=== PATIENT | male | born 1940 | race Caucasian/White ===

== ENCOUNTER 2024-07-02 20:56 | Outpatient (CLI) | payer MEDICARE, BC, SELFPAY | END 2024-07-02 20:57 | disposition home or self-care (01) | LOC: AMB 07-13 00:16 | PROVIDERS: PCP Family Medicine; Visit Provider Student in an Organized Health Care Education/Training Program | DX: R50.9 Fever, unspecified (principal) | CPT/HCPCS: A0425; A0427 ==

== ENCOUNTER 2024-07-02 21:19 | Emergency (ER) | payer MEDICARE, BC, SELFPAY ==
[2024-07-02 21:27] VITALS: BP 129/64; PULSE 84; RESP 22; TEMP 36.6; O2SAT 93
[2024-07-02 22:53] LABS: Appearance Urine Clear (Clear); Bilirubin Urine Negative (Negative); Blood Urine Negative (Negative); Color Urine Yellow (Yellow); Glucose Urine Negative (Negative); Ketones Urine Negative (Negative); Leukocyte Esterase Urine Negative (Negative); Nitrite Urine Negative (Negative); Protein Urine Trace (Negative); Urobilinogen Urine >=8.0 (0.2-1.0); pH Urine 8.5 (5.0-8.5)
[2024-07-02 23:19] VITALS: BP 118/66; PULSE 86; RESP 16; O2SAT 94
[2024-07-02 23:26] LABS: RBC Urine 0-2 (0-2); Squamous Epithelial Cell Urine Few (None-Few); WBC Urine 0-2 (0-5)
[2024-07-02 23:31] LABS: PCR FLU A Negative PCR FLU A (Negative); PCR FLU B Negative PCR FLU B (Negative); SARS PCR* Negative SARS-CoV-2 (Negative)
[2024-07-02 23:32] VITALS: BP 119/64; PULSE 82; O2SAT 94
--- NOTE | 2024-07-02 23:32 | ED.GENADULT ---
HPI - General Adult General Chief complaint: Altered Mental Status Stated complaint: fever Time Seen by Provider: 07/02/24 21:26 History of Present Illness HPI narrative: Pt arrives via EMS for confusion and fever since 1700. Tmax at home 102. Pt woke up and had a normal day. Was out w/ friends. Was supposed to go out for dinner w/ spouse and she found him to be confused. On arrival, pt is slow to answer questions. Denies pain. Is afebrile. States he might have had some alcohol today. 83-year-old man presenting to the emergency department. [place] struggles with memory. Spouse answers most questions offers most information. Had been spending some hours working to repair a door knob with a friend. Was apparently subsequently in bed and spouse touched his leg and noted that it was very hot. Measure temperature up to 102 at home. Went to the bathroom but was too weak to get up from the toilet so spouse called for ambulance. No pain complaints. No rashes. Related Data Home Medications ?Medication ?Instructions ?Recorded ?Confirmed donepezil 10 mg tablet 10 mg PO DAILY 07/02/24 07/02/24 rosuvastatin 20 mg tablet 20 mg PO DAILY 07/02/24 07/02/24 verapamil 240 mg tablet,extended 240 mg PO DAILY 07/02/24 07/02/24 release Allergies Allergy/AdvReac Type Severity Reaction Status Date / Time No Known Drug Allergies Allergy Verified 07/02/24 21:34 Review of Systems Status of ROS: Reports: 6 or more systems reviewed and unremarkable except as noted in History and below [facility] Social History Smoking Status: Unknown if ever smoked Exam Narrative: Exam Narrative: Pleasant. Breathing easily. Does not say a whole lot. Reacts responds though fully alert. Defers to spouse in conversation. Face is flushed. Oropharynx unremarkable. Neck is supple without lymphadenopathy. Lungs are clear. Heart in regular rate and rhythm with trace systolic murmur. Abdomen is overweight soft and nontender. No peritoneal signs certainly. No masses appreciated. Normal bowel sounds. Moving all extremities without difficulty. Well-perfused peripherally. Trace pretibial pitting edema. Const: Vital Signs, click to edit/add: Vital Signs - 24 hr 07/02/24 21:27 07/02/24 23:19 07/02/24 23:32 Temperature 98 F Pulse Rate 86 82 Pulse Rate [Pulse Oximeter] 84 Respiratory Rate 22 16 Blood Pressure 118/66 119/64 Blood Pressure [Ri ght Upper Arm] 129/64 Pulse Oximetry 93 94 94 Oxygen Delivery Me thod Room Air Room Air 07/02/24 23:46 07/03/24 00:02 07/03/24 00:17 Temperature Pulse Rate 82 85 77 Pulse Rate [Pulse Oximeter] Respiratory Rate 16 Blood Pressure 126/62 124/64 126/74 Blood Pressure [Ri ght Upper Arm] Pulse Oximetry 94 93 94 Oxygen Delivery Me thod Room Air 07/03/24 00:32 07/03/24 00:32 07/03/24 00:43 Temperature Pulse Rate 76 76 77 Pulse Rate [Pulse Oximeter] Respiratory Rate Blood Pressure 116/72 116/72 138/61 Blood Pressure [Ri ght Upper Arm] Pulse Oximetry 94 94 95 Oxygen Delivery Me thod 07/03/24 01:01 07/03/24 01:17 07/03/24 01:18 Temperature Pulse Rate 70 Pulse Rate [Pulse Oximeter] Respiratory Rate Blood Pressure 116/53 L 106/58 L Blood Pressure [Ri ght Upper Arm] Pulse Oximetry 95 Oxygen Delivery Me thod 07/03/24 01:30 07/03/24 01:45 07/03/24 02:00 Temperature Pulse Rate 70 67 66 Pulse Rate [Pulse Oximeter] Respiratory Rate Blood Pressure Blood Pressure [Ri ght Upper Arm] Pulse Oximetry 94 94 95 Oxygen Delivery Me thod 07/03/24 02:15 07/03/24 02:30 07/03/24 02:37 Temperature 98.8 F Pulse Rate 65 62 Pulse Rate [Pulse Oximeter] Respiratory Rate Blood Pressure Blood Pressure [Ri ght Upper Arm] Pulse Oximetry 94 96 Oxygen Delivery Me thod 07/03/24 02:37 Temperature 98.8 F Pulse Rate Pulse Rate [Pulse Oximeter] Respiratory Rate Blood Pressure Blood Pressure [Ri ght Upper Arm] Pulse Oximetry Oxygen Delivery Me thod Documenting provider has reviewed patient's vital signs: yes Course Vital Signs Vital signs: Initial Vital Signs Temperature 98 F 07/02/24 21:27 Temperature Source Oral 07/02/24 21:27 Pulse Rate 84 07/02/24 21:27 Pulse Rhythm Regular 07/02/24 21:27 Respiratory Rate 22 07/02/24 21:27 Blood Pressure 129/64 07/02/24 21:27 Blood Pressure Mean 85 07/02/24 21:27 Blood Pressure Position Semi-Fowlers 07/02/24 21:27 Pulse Oximetry 93 07/02/24 21:27 Oxygen Delivery Method Room Air 07/02/24 21:27 Vital Signs Temperature 98 F 07/02/24 21:27 Pulse Rate 84 07/02/24 21:27 Respiratory Rate 22 07/02/24 21:27 Blood Pressure 129/64 07/02/24 21:27 Pulse Oximetry 93 07/02/24 21:27 Oxygen Delivery Method Room Air 07/02/24 21:27 Temperature 98.8 F 07/03/24 02:37 Pulse Rate 62 07/03/24 02:30 Respiratory Rate 16 07/03/24 00:02 Blood Pressure 106/58 L 07/03/24 01:17 Pulse Oximetry 96 07/03/24 02:30 Oxygen Delivery Method Room Air 07/03/24 00:02 Medications Administered Medications: Discontinued Medications Generic Name Dose Route Start Last Admin Trade Name Myranda PRN Reason Stop Dose Admin Acetaminophen 1,000 mg 07/02/24 23:43 07/03/24 00:10 Acetaminophen 500 Mg Tablet PO 07/02/24 23:44 1,000 mg ONCE ONE Administration Sodium Chloride 1,000 mls @ 1,000 mls/hr 07/02/24 23:43 07/03/24 01:20 0.9 % Sodium Chloride 1000 Ml IV 07/03/24 00:42 Infused .Q1H ONE Infusion Ceftriaxone Sodium 1 gm/ 100 mls @ 200 mls/hr 07/03/24 01:53 07/03/24 02:37 Sodium Chloride IVPB 07/03/24 01:54 Infused ONCE ONE Infusion Medical Decision Making MDM Narrative Medical decision making narrative: Reported fever. Not demonstrated here. I would expect that did indeed have a fever. Unclear etiology at this point. Sounds like was exerting himself little bit more physically today. Has been warm out. Air conditioning available but not turned on at the house. Would search for source of potential infection. Vitals reassuring at this point. Though O2 sats a little bit low initially at 93%. I did review chest x-ray one-view portable. Radiology over-read as below. Technique: Chest 1 view. Comparison: Chest radiographs dated 07/22/2015. Findings/Impression: Cardiovascular and mediastinum: Prominent cardiomediastinal silhouette. Lungs and pleural space: Very low lung volumes with diffuse interstitial prominence, which is likely at least partially artifactual, though pulmonary edema or pneumonia could have a similar appearance. No definite pleural effusion. No pneumothorax. Bones and soft tissues: No acute findings. Labs are reassuring. On reassessment is markedly more alert/energetic following IV hydration and rest. Considering age and findings in chest x-ray, perhaps it is prudent to treat for evolving pneumonia. Rocephin given. Ambulating smoothly and vigorously with a walker about the department prior to departure and would like to return home. Medical Records Medical records reviewed: Yes I reviewed the patient's medical records Lab Data Lab results reviewed: Yes I reviewed the patient's lab results Labs: Lab Results 07/02/24 07/03/24 Range/Units 22:40 00:05 WBC 7.83 (4.50-11.00) K/uL RBC 4.20 L (4.30-5.90) m/uL Hgb 13.2 L (13.5-17.5) gm/dL Hct 38.3 (37.0-53.0) % MCV 91 (80-100) fL MCH 31 (26-34) pg MCHC 35 (32-36) gm/dL RDW Coeff of Rajat 12.3 (11.5-15.5) % Plt Count 134 L (140-440) K/uL Neut % (Auto) 79.6 H (42.0-72.0) % Lymph % (Auto) 10.7 L (20-44) % [place] % (Auto) 9.3 (0.0-11.0) % Eos % (Auto) 0.0 (0.0-7.0) % Baso % (Auto) 0.1 (0.0-3.0) % Neut # (Auto) 6.20 (1.7-7.0) K/uL Lymph # (Auto) 0.80 L (0.90-2.90) K/uL [place] # (Auto) 0.70 (0.00-0.90) K/UL Eos # (Auto) 0.00 (0.00-0.50) K/uL Baso # (Auto) 0.01 (0.00-0.30) K/uL Abs Immat Gran (auto) 0.02 (0.00-0.30) K/uL Imm/Tot Granulo (auto) 0.3 % Sodium 136 (135-149) mmol/L Potassium 4.1 (3.6-5.1) mmol/L Chloride 106 (96-114) mmol/L Carbon Dioxide 22 (20-32) mmol/L Anion Gap 8 (7-15) mEq/L BUN 20 (7-30) mg/dL Creatinine 0.7 (0.5-1.5) mg/dL Estimated GFR 91 ml/min Glucose 110 (60-115) mg/dL Calcium 9.0 (8.4-10.6) mg/dL Magnesium 2.0 (1.5-2.6) mg/dL Total Bilirubin 1.4 (0.1-1.5) mg/dL Direct Bilirubin 0.3 (0.0-0.5) mg/dL AST 32 (12-35) U/L ALT 20 (4-50) U/L Alkaline Phosphatase 62 (40-150) U/L C-Reactive Protein 1.5 H (0.5-1.0) mg/dL NT-Pro-B Natriuret Pep 452 pg/mL Total Protein 6.8 (6.0-8.3) g/dL Albumin 4.0 (3.3-5.0) g/dL Urine Color Yellow (Yellow) Urine Appearance Clear (Clear) Urine pH 8.5 (5.0-8.5) Ur Specific [place] 1.020 (1.000-1.030) Urine Protein Trace A (Negative) Urine Glucose (UA) Negative (Negative) Urine Ketones Negative (Negative) Urine Blood Negative (Negative) Urine Nitrite Negative (Negative) Urine Bilirubin Negative (Negative) Urine Urobilinogen >=8.0 A (0.2-1.0) Ur Leukocyte Esterase Negative (Negative) Urine RBC 0-2 (0-2) Urine WBC 0-2 (0-5) Ur Squamous Epith Cells Few (None-Few) Urine Bacteria None (None) Ethyl Alcohol < 0.01 L (0.01-0.03) % SARS-CoV-2 (PCR) Negative SARS-CoV-2 (Negative) Influenza Type A (PCR) Negative PCR FLU A (Negative) Influenza Type B (PCR) Negative PCR FLU B (Negative) Discharge Plan Discharge Clinical Impression: Fever Patient Disposition: Home w/ Parent or Adult Condition: Improved Additional Instructions: You did seem to be dehydrated here today. Focus on hydration; what we did do for you did seem to provide more energy. Be sure to get about only with a walker in the short term. Keep it close by. Will also be treating for potential pneumonia. You received a gram of Rocephin. You are recommended to continue a course of doxycycline. Prescribed from [facility]. Contrary to prescription as written in [facility], I do think 8 days of doxycycline would likely be enough. Return for worsening weakness, particularly independent of fever. Return for increasing persistent shortness of breath or chest pain. Prescriptions: No Action donepezil 10 mg tablet 10 mg PO DAILY rosuvastatin 20 mg tablet 20 mg PO DAILY verapamil 240 mg tablet extended release 240 mg PO DAILY Follow Up/Referrals: Maryuri Goins DO [Primary Care Provider] - Stand Al[facility]
--- NOTE | 2024-07-02 23:45 | CRLHL7_ITS ---
For Patients: As a result of the Cures Act, medical imaging exams and procedure reports are released immediately into your electronic medical record. You may view this report before your referring provider. If you have questions, please contact your health care provider. Indication: FEVER, AMS. Technique: Chest 1 view. Comparison: Chest radiographs dated 07/22/2015. Findings/Impression: Cardiovascular and mediastinum: Prominent cardiomediastinal silhouette. Lungs and pleural space: Very low lung volumes with diffuse interstitial prominence, which is likely at least partially artifactual, though pulmonary edema or pneumonia could have a similar appearance. No definite pleural effusion. No pneumothorax. Bones and soft tissues: No acute findings. Dictated by Keegan Gunter MD @ 07/03/2024 1:50:10 AM (Electronically Signed)
[2024-07-02 23:46] VITALS: BP 126/62; PULSE 82; O2SAT 94
[2024-07-03] VITALS (13 sets, daily range): BP systolic 106–138; BP diastolic 53–74; PULSE 62–85; RESP 16; TEMP 37.1; O2SAT 93–96
[2024-07-03] MEDS: ACETAMINOPHEN 500 MG TABLET 1000 MG PO (00:10)
[2024-07-03] MEDS: 0.9 % SODIUM CHLORIDE 1000 ml 1,000 ML IV (00:10)
[2024-07-03 00:15] LABS: Basophils Absolute Auto 0.01 K/uL (0.00-0.30); Basophils Percent Auto 0.1 % (0.0-3.0); Hematocrit 38.3 % (37.0-53.0); Hemoglobin* 13.2 gm/dL (13.5-17.5); Immature Granulocytes Abs Auto 0.02 K/uL (0.00-0.30); Immature Granulocytes Pct Auto 0.3 %; Lymphocytes Percent Auto 10.7 % (20-44); Mean Corpuscular HGB Conc 35 gm/dL (32-36); Mean Corpuscular Hemoglobin 31 pg (26-34); Mean Corpuscular Volume 91 fL (80-100); Monocytes Percent Auto 9.3 % (0.0-11.0); Neutrophils Percent Auto 79.6 % (42.0-72.0); Platelet Count* 134 K/uL (140-440); RDW Coefficient of Variation % 12.3 % (11.5-15.5); White Blood Count* 7.83 K/uL (4.50-11.00)
[2024-07-03 00:42] LABS: Slide Review Reflex No
[2024-07-03 00:49] LABS: Chloride* 106 mmol/L (96-114)
[2024-07-03 00:50] LABS: Potassium* 4.1 mmol/L (3.6-5.1); Sodium* 136 mmol/L (135-149)
[2024-07-03 00:52] LABS: Alkaline Phosphatase* 62 U/L (40-150); Anion Gap 8 mEq/L (7-15); Aspartate Amino Transferase* 32 U/L (12-35); Bilirubin Direct* 0.3 mg/dL (0.0-0.5); Bilirubin Total* 1.4 mg/dL (0.1-1.5); Carbon Dioxide* 22 mmol/L (20-32); Creatinine* 0.7 mg/dL (0.5-1.5); Estimated Glomerular Filt Rate 91 ml/min; Total Protein* 6.8 g/dL (6.0-8.3)
[2024-07-03 00:53] LABS: Alanine Aminotransferase* 20 U/L (4-50); Blood Urea Nitrogen* 20 mg/dL (7-30); Glucose* 110 mg/dL (60-115)
[2024-07-03 00:55] LABS: C Reactive Protein* 1.5 mg/dL (0.5-1.0)
[2024-07-03 01:00] LABS: Ethanol* < 0.01 % (0.01-0.03)
[2024-07-03 01:03] LABS: NT Pro B Type NatriureticPept* 452 pg/mL
[2024-07-03] MEDS: cefTRIAXone 1 GM in 0.9 % SODIUM CHLORIDE Mini-bag 100 ML IVPB (02:00)
== END 2024-07-03 03:17 | disposition home or self-care (01) ==
PROVIDERS: Emergency Provider Family Medicine; PCP Family Medicine
DX: R50.9 Fever, unspecified (principal)
CPT/HCPCS: 36415; 71045; 80048; 80076; 81001; 82077; 83735; 83880; 85025; 86140; 87631; 96365; 99284; A9270; J0696; J7030

== ENCOUNTER 2024-08-10 08:26 | Outpatient (CLI) | payer MEDICARE, BC, SELFPAY | END 2024-08-10 08:27 | disposition home or self-care (01) | PROVIDERS: PCP Family Medicine; Visit Provider Family Medicine | DX: M54.16 Radiculopathy, lumbar region (principal); M51.369 Other intervertebral disc degeneration, lumbar region without mention of lumbar back pain or lower extremity pain | CPT/HCPCS: 62323; J0702; Q9966 ==

== ENCOUNTER 2024-10-08 09:30 | Outpatient (CLI) | payer MEDICARE, BC, SELFPAY | END 2024-10-08 09:31 | disposition home or self-care (01) | LOC: INJ CL 09:31 | PROVIDERS: PCP Family Medicine; Visit Provider Family Medicine | DX: M47.816 Spondylosis without myelopathy or radiculopathy, lumbar region (principal) | CPT/HCPCS: 64493; J0702; Q9966 ==

== ENCOUNTER 2024-10-15 11:39 | Emergency (ER) | payer MEDICARE, BC, SELFPAY ==
[2024-10-15 11:46] VITALS: BP 149/72; PULSE 70; RESP 16; TEMP 36.6; O2SAT 98; BMI 38.4
--- NOTE | 2024-10-15 13:07 | CRLHL7_ITS ---
For Patients: As a result of the Century Cures Act, medical imaging exams and procedure reports are released immediately into your electronic medical record. You may view this report before your referring provider. If you have questions, please contact your health care provider. INDICATION: Fall. TECHNIQUE: CT head without contrast. COMPARISON: None. FINDINGS: No acute intracranial hemorrhage or large vascular territory infarct. Moderate parenchymal volume loss. Scattered white matter hypodensities are nonspecific, likely related to chronic microvascular ischemic changes. No abnormal extra-axial fluid collection. Bilateral orbits demonstrates no acute findings. Paranasal sinuses and mastoid air cells are well pneumatized. No calvarial fracture. IMPRESSION: Chronic changes without acute intracranial traumatic injury. Please note that all CT scans at this facility use dose modulation, iterative reconstruction, and/or weight-based dosing when appropriate to reduce radiation dose to as low as reasonably achievable. Dictated by Pan Bennett MD @ 10/15/2024 2:19:14 PM (Electronically Signed)
--- NOTE | 2024-10-15 13:08 | ED.GENADULT ---
HPI - General Adult General Chief complaint: Weakness Stated complaint: syncope/foggy feeling Time Seen by Provider: 10/15/24 12:57 History of Present Illness HPI narrative: This 84-year-old male comes in with his and daughter because of 3 falls that have occurred over the past week. A week ago he had an injection in his low back administered in the spine clinic. After returning home he had weakness where he went to the floor but did not have any particular injury. His states that a couple days later he may be missed the toilet and was on his knees on the floor. Again yesterday he had some weakness and went down in the kitchen area. None of these generated any injury event and the patient is not complaining of any such symptoms. He does have memory issues and is a poor historian. His did not actually see any of these falls. He is unable to recount any details or circumstances that brought him to go down. Today he is able to get up and ambulate but feels that he is unsteady. He does ambulate with the assistance of a walker. Related Data Home Medications ?Medication ?Instructions ?Recorded ?Confirmed donepezil 10 mg tablet 10 mg PO DAILY 07/02/24 10/15/24 rosuvastatin 20 mg tablet 20 mg PO DAILY 07/02/24 10/15/24 verapamil 240 mg tablet,extended 240 mg PO DAILY 07/02/24 10/15/24 release Tylenol Arthritis Pain 10/15/24 Voltaren 10/15/24 dorzolamide 2 % eye drops 1 drp ophthalmic (eye-right) BID 10/15/24 10/15/24 latanoprost 0.005 % eye drops 1 drp ophthalmic (eye) QPM 10/15/24 10/15/24 Allergies Allergy/AdvReac Type Severity Reaction Status Date / Time Penicillins Allergy Unknown Verified 10/15/24 11:54 Review of Systems Narrative: Unable to obtain due to dementia. [facility] Social History Smoking Status: Unknown if ever smoked How often do you have a drink containing alcohol: 4 or more times a week How many standard drinks containing alcohol do you have on a typical day: 1 or 2 How often do you have six or more drinks on one occasion: Never AUDIT-C Alcohol total score: 4 Non-prescribed substance use: denies use service: No Exam Narrative: Exam Narrative: Constitutional: Well-developed, well-nourished, no acute distress. HEENT: Normocephalic, atraumatic. Neck: Normal range of motion. Nontender. Supple. Heart: Regular. No murmurs. Normal rate. Intact distal pulses. Lungs: Clear to auscultation. No chest discomfort. No wheezes, rhonchi, or rales. Abdomen: Normal bowel sounds. Nontender. No rebound tenderness. Genitalia: Deferred. Back: No midline tenderness. Normal range of motion. Extremities: Normal range of motion. No injury. Skin: Intact. No rash. Warm. No erythema or pallor. Neurologic: No altered sensation. No weakness. Alert and oriented. No facial asymmetry. Tongue is midline. [id number] is normal. No pronator drift. Psychiatry Physician strength is equal bilaterally. Able to raise each leg from the bed. Psychiatric: No suicidality. No anxiety or depression. No insomnia. He is a poor historian. Nursing notes and vitals signs are reviewed. Const: Vital Signs, click to edit/add: Vital Signs - 24 hr 10/15/24 11:46 10/15/24 13:22 10/15/24 14:30 Temperature 97.8 F Pulse Rate [Pulse Oximeter] 70 66 56 L Respiratory Rate 16 16 16 Blood Pressure [Ri ght Upper Arm] 149/72 H 130/67 142/67 H Pulse Oximetry 98 96 96 Oxygen Delivery Me thod Room Air Room Air Course Vital Signs Vital signs: Initial Vital Signs Temperature 97.8 F 10/15/24 11:46 Temperature Source Temporal Artery Scan 10/15/24 11:46 Pulse Rate 70 10/15/24 11:46 Respiratory Rate 16 10/15/24 11:46 Blood Pressure 149/72 H 10/15/24 11:46 Blood Pressure Mean 97 10/15/24 11:46 Blood Pressure Position Sitting 10/15/24 11:46 Pulse Oximetry 98 10/15/24 11:46 Oxygen Delivery Method Room Air 10/15/24 11:46 Vital Signs Temperature 97.8 F 10/15/24 11:46 Pulse Rate 70 10/15/24 11:46 Respiratory Rate 16 10/15/24 11:46 Blood Pressure 149/72 H 10/15/24 11:46 Pulse Oximetry 98 10/15/24 11:46 Oxygen Delivery Method Room Air 10/15/24 11:46 Temperature 97.8 F 10/15/24 11:46 Pulse Rate 56 L 10/15/24 14:30 Respiratory Rate 16 10/15/24 14:30 Blood Pressure 142/67 H 10/15/24 14:30 Pulse Oximetry 96 10/15/24 14:30 Oxygen Delivery Method Room Air 10/15/24 13:22 Medical Decision Making MDM Narrative Medical decision making narrative: This patient has fallen a few times as described above. He is able to get up and ambulate today and actually had several uneventful trips to the bathroom and elsewhere throughout his stay here. He was able to ambulate without any difficulty and did so normally according to the patient and family members. A CT scan of the head is obtained and shows no acute findings. Lab results also are all normal. This patient is okay to be discharged home. I stressed the importance of using a walker whenever he is ambulating. Lab Data Labs: Lab Results 10/15/24 Range/Units 13:15 WBC 8.36 (4.50-11.00) K/uL RBC 4.65 (4.30-5.90) m/uL Hgb 14.4 (13.5-17.5) gm/dL Hct 42.7 (37.0-53.0) % MCV 92 (80-100) fL MCH 31 (26-34) pg MCHC 34 (32-36) gm/dL RDW Coeff of Rajat 12.4 (11.5-15.5) % Plt Count 195 (140-440) K/uL Neut % (Auto) 61.4 (42.0-72.0) % Lymph % (Auto) 28.0 (20-44) % [place] % (Auto) 10.2 (0.0-11.0) % Eos % (Auto) 0.2 (0.0-7.0) % Baso % (Auto) 0.1 (0.0-3.0) % Neut # (Auto) 5.13 (1.7-7.0) K/uL Lymph # (Auto) 2.34 (0.90-2.90) K/uL [place] # (Auto) 0.90 (0.00-0.90) K/UL Eos # (Auto) 0.02 (0.00-0.50) K/uL Baso # (Auto) 0.01 (0.00-0.30) K/uL Abs Immat Gran (auto) 0.01 (0.00-0.30) K/uL Imm/Tot Granulo (auto) 0.1 % Sodium 137 (135-149) mmol/L Potassium 4.0 (3.6-5.1) mmol/L Chloride 103 (96-114) mmol/L Carbon Dioxide 26 (20-32) mmol/L Anion Gap 8 (7-15) mEq/L BUN 20 (7-30) mg/dL Creatinine 0.7 (0.5-1.5) mg/dL Estimated Creat Clear 47.83 Estimated GFR 91 ml/min Glucose 91 (60-115) mg/dL Calcium 10.0 (8.4-10.6) mg/dL Imaging Data CT scan - head: Radiologist's impression: Chronic changes without acute intracranial traumatic injury. Discharge Plan Discharge Clinical Impression: Falls, Chronic back pain Patient Disposition: Home w/ Parent or Adult Condition: Stable Additional Instructions: Continue current medications. Use a walker with any attempted ambulating. Follow up with MD or return if worsening. Prescriptions: No Action latanoprost 0.005 % drops 1 drp ophthalmic (eye) QPM dorzolamide 2 % drops 1 drp ophthalmic (eye-right) BID Tylenol Arthritis Pain Voltaren donepezil 10 mg tablet 10 mg PO DAILY rosuvastatin 20 mg tablet 20 mg PO DAILY verapamil 240 mg tablet extended release 240 mg PO DAILY Follow Up/Referrals: Maryuri Goins DO [Primary Care Provider] - Stand Alone Forms: [facility] Info Instructions
[2024-10-15 13:22] VITALS: BP 130/67; PULSE 66; RESP 16; O2SAT 96
[2024-10-15 13:22] LABS: Basophils Absolute Auto 0.01 K/uL (0.00-0.30); Basophils Percent Auto 0.1 % (0.0-3.0); Eosinophils Absolute Auto 0.02 K/uL (0.00-0.50); Eosinophils Percent Auto 0.2 % (0.0-7.0); Hematocrit 42.7 % (37.0-53.0); Hemoglobin* 14.4 gm/dL (13.5-17.5); Immature Granulocytes Abs Auto 0.01 K/uL (0.00-0.30); Immature Granulocytes Pct Auto 0.1 %; Lymphocytes Absolute Auto 2.34 K/uL (0.90-2.90); Mean Corpuscular HGB Conc 34 gm/dL (32-36); Mean Corpuscular Hemoglobin 31 pg (26-34); Mean Corpuscular Volume 92 fL (80-100); Monocytes Percent Auto 10.2 % (0.0-11.0); Neutrophils Absolute Auto 5.13 K/uL (1.7-7.0); Neutrophils Percent Auto 61.4 % (42.0-72.0); Platelet Count* 195 K/uL (140-440); RDW Coefficient of Variation % 12.4 % (11.5-15.5); Red Blood Count 4.65 m/uL (4.30-5.90); White Blood Count* 8.36 K/uL (4.50-11.00)
[2024-10-15 13:37] LABS: Chloride* 103 mmol/L (96-114); Sodium* 137 mmol/L (135-149)
[2024-10-15 13:40] LABS: Anion Gap 8 mEq/L (7-15); Blood Urea Nitrogen* 20 mg/dL (7-30); Carbon Dioxide* 26 mmol/L (20-32); Creatinine* 0.7 mg/dL (0.5-1.5); Est. Creatinine Clearance* 47.83; Estimated Glomerular Filt Rate 91 ml/min; Glucose* 91 mg/dL (60-115)
[2024-10-15 13:44] LABS: Slide Review Reflex No
[2024-10-15 14:30] VITALS: BP 142/67; PULSE 56; RESP 16; O2SAT 96
== END 2024-10-15 15:27 | disposition home or self-care (01) ==
PROVIDERS: Emergency Provider Emergency Medicine Emergency Medical Services; PCP Family Medicine
DX: M54.9 Dorsalgia, unspecified (principal); W19.XXXA Unspecified fall, initial encounter
CPT/HCPCS: 36415; 70450; 80048; 85025; 99283; 99284

== ENCOUNTER 2025-02-02 12:30 | Outpatient (RCR) | payer MEDICARE, BC, SELFPAY | END 2025-02-02 13:56 | disposition home or self-care (01) | PROVIDERS: PCP Family Medicine; Visit Provider Family Medicine | DX: M47.816 Spondylosis without myelopathy or radiculopathy, lumbar region (principal); M48.062 Spinal stenosis, lumbar region with neurogenic claudication; M54.16 Radiculopathy, lumbar region; R26.89 Other abnormalities of gait and mobility; Z51.89 Encounter for other specified aftercare | CPT/HCPCS: 97110; 97112; 97140; 97162 ==